=== PATIENT | male | born 1990 | race Caucasian/White ===

== ENCOUNTER 2020-10-14 09:08 | Emergency (ER) | payer OTHER ==
[2020-10-14] MEDS ORDERED: IBUPROFEN600 MG PO (10:24)
== END 2020-10-14 11:25 | disposition home or self-care (01) ==
LOC: ER1 09:08
DX: S93.401A Sprain of unspecified ligament of right ankle, initial encounter (principal); S93.601A Unspecified sprain of right foot, initial encounter; F17.200 Nicotine dependence, unspecified, uncomplicated; W18.42XA Slipping, tripping and stumbling without falling due to stepping into hole or opening, initial encounter
CPT/HCPCS: 73610; 73630; 99283